=== PATIENT | female | born 1975 | race African-American/Black ===

== ENCOUNTER → 2017-02-22 | Outpatient (CLI) | payer OTHER ==
[~2017-02-22] MED LIST: ALBUTEROL17 G1 INH; AMBIEN PO; AMITRYPTYLINE PO; EXCEDRIN EXTRA1 TAB PO; KETOPROFEN PO; KLONOPIN1 MG PO; PERCOCET 5-3251 TAB PO; PHENERGAN25 MG PO; PRILOSEC PO; PRILOSEC20 MG; ULTRAM PO; VICODIN 5/500 T1 TAB PO; VISTARIL PO
--- NOTE | ~2017-02-22 | MY11 ---
[facility] A Service of [facility] RADIOLOGY TEXT RESULTS PATIENT: DENEEN ONEIL LOCATION: [facility] : 73 UNIT #: [id number] AGE: [address]: ANDAR BLAND APRN SEX: F ORDER DR: [id number] [facility] [address] [place], [place] [address] [id number] O MR#: [id number] Acc #: [id number] NAME: DENEEN ONEIL : 1975 SEX: F STUDY DATE/TIME: 02/22/2017 10:24 UNIT: [facility] ROOM: STUDY DESCRIPTION: MY Mammogram Screening Dig Adam Attending Physician: Andra Bland Aprn Referring Physician: Andra Bland Aprn Ordering Physician: Andra Bland Aprn Primary Care Physician: Andra Bland Aprn MEDICAL IMAGING REPORT This report is preliminary unless electronic signature is present EXAM Bilateral digital screening with CAD. HISTORY Routine screening. No current complaints. Family history of breast cancer in aunt. Baseline study. MLO and CC digital views of each breast were obtained. The exam was reviewed with an FDA-approved CAD. There are scattered fibroglandular densities present. There are no masses or abnormal calcifications. IMPRESSION No evidence of malignancy. Patients over the age of 40 are entered into a reminder system with target due date for the next mammogram. A result letter will also be sent to the patient. BIRADS: 1 Negative Dictated by... Saman Ryder M.D. THIS IS AN ELECTRONICALLY VERIFIED REPORT Saman Ryder M.D. at 02/22/2017 3:23 PM [place] TD: 02/22/2017 14:15 JOB #: [id number] MEDICAL IMAGING REPORT Page 1 of 1 COPY
== END | disposition home or self-care (01) ==
LOC: CWCC 10:09
DX: Z12.31 Encounter for screening mammogram for malignant neoplasm of breast (principal); Z80.3 Family history of malignant neoplasm of breast
CPT/HCPCS: G0202